=== PATIENT | female | born 1945 | race African-American/Black ===

== ENCOUNTER 2020-09-06 19:48 | Inpatient (IN) | payer OTHER ==
--- OUTSIDE RECORDS SUMMARY | 2020-09-06 19:52 | XMS REPORT | Continuity of Care Document ---
:1945 Author Organization [facility] t Address [address] [place] [address] Care Team Providers Name Role Phone ANUP JR Primary Care Physician Unavailable Ce Attending Clinician [phone] Shelby Muhammad Attending Clinician Unavailable Shelby Muhammad Attending Clinician Unavailable ELSY Attending Clinician Unavailable Tom DONALD M Attending Clinician Alvarado Carbajal MD Attending Clinician Shelby Muhammad Admitting Clinician Unavailable Payers Payer Name Policy Type Policy Number Effective Date Expiration Date S ource Problems Condition Condition Condition Status Onset Resolution Last Treating Co mments Source Name Details Category Date Date Treatment Clinician Date 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 Doing well. PCO OS - defer treatment .Rx glasses given. Posterior Posterior Disease Active Overview: [place] vitreous vitreous - Formatt[place] Met hodi detachment detachment 00:00: g of this st of both of both 00 note eyes eyes might be different from the original. No retinal tears or detachmen ts. 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 thodist Social History Social Habit Start Date Stop Date Quantity Comments Source Tobacco use and 2019-08-25 2019-08-25 Never used Keyshawn ethodist exposure 00:00:00 00:00:00 Alcohol intake 2019-08-25 2019-08-[address] [facility] thodist 00:00:00 00:00:00 non-drinker of alcohol (finding) Sex Ass[birth year] Keyshawn Childers ethodist 00:00:00 00:00:00 Smoking Status Start Date Stop Date Source [facility] Medications Ordered Filled Start Stop Current Ordering Indication Dosage Frequency Signature Comments Components Source Medication Medication Date Date Medication? Clinician (SIG) Name Name aspirin 2019-0 Yes Take 1 Mahajan (ECOTRIN 08-24 tablet(s) Method i LOW 09:28: every day st STRENGTH) 24 by oral 81 MG route. enteric coated tablet esomeprazol 2020-0 Yes TK 1 C PO [place] e (NexIUM) 7-08 QD Methodi 40 MG 09:28: st capsule 24 benazepril 2020-0 Yes 40mg Q.5D Take 40 mg [place] (LOTENSIN) 7-08 by mouth 2 Met hodi 20 MG 09:28: (two) st tablet 24 times a day. NIFEdipine 2020-0 Yes 60mg Q.5D Take 60 mg [place] XL -08 by mouth 2 Methodi (PROCARDIA 09:28: (two) st XL) 60 MG 24 times a 24 hr day. tablet nebivolol 2020-0 Yes 10mg QD Take 10 mg Ho d[place] (BYSTOLIC) 7-08 by mouth Metho di 10 MG 09:28: daily. st tablet 24 clonIDINE 2020-0 Yes 1{patch Q7D Place 1 Ho [place] (CATAPRES-T 7-08 } patch on Meth jaqueline TS-3) 0.3 09:28: the skin st mg/24 hr 24 once a week. hydrALAZINE 2020-0 Yes 50mg Q.5D Take 50 mg Mahajan (APRESOLINE 7-08 by mouth 2 Me thodi ) 100 MG 09:28: (two) st tablet 24 times a day. ferrous 2020-0 Yes 325mg QD Take 325 [place] on sulfate 325 7-08 mg by Methodi (65 FE) MG 09:28: mouth st tablet 24 daily with breakfast. gabapentin 2020-0 Yes 100mg QD Take 100 [place] (NEURONTIN) 7-08 mg by Methodi 100 mg 09:28: mouth st capsule 24 nightly. meloxicam 2020-0 Yes TAKE 1 [place] (MOBIC) 15 2-25 TABLET BY Meth jaqueline mg tablet 00:00: MOUTH st 00 EVERY DAY Procedures This patient has no known procedures. Plan of Care Planned Activity Planned Date Details Comments Source Future Scheduled 2020-09-17 INFLUENZA VACCINE [place] [facility] Test 00:00:00 [code = INFLUENZA VACCINE] Future Scheduled 1996 BREAST CANCER [place] Me thodist Test 00:00:00 SCREENING [code = BREAST CANCER SCREENING] Future Scheduled 1996 COLONOSCOPY SCREENING Tera bustamante Sabianist Test 00:00:00 [code = COLONOSCOPY SCREENING] Future Scheduled 1996 SHINGLES VACCINES [place] [facility] Test 00:00:00 (#1) [code = SHINGLES VACCINES (#1)] Future Scheduled 1964 Hepatitis C screening Tera bustamante Sabianist Test 00:00:00 (procedure) [code = 437861437] Future Scheduled 1958 COVID-19 VACCINE (1) Zehrawalt aiken Sabianist Test 00:00:00 [code = COVID-19 VACCINE (1)] Encounters Start End Encounter Admission Attending Care Care Encounter Source Date/Time Date/Time Type Type Clinicians Facility Department ID 2020-06-12 2020-06-12 Outpatient Ce [facility] [id number] 00:00:00 00:00:00 Estuardo [id number] 2019-12-06 2019-12-06 Outpatient 3 Tre Muhammad [facility] ENDO [id number] St. 06:17:00 23:59:00 Tre Muhammad [facility] 2019-12-06 2019-12-06 Outpatient 3 Tre Muhammad [facility] ENDO [id number] St. 06:17:00 06:17:00 rTe Muhammad -2019 1019 [facility] 2019-08-25 2019-08-25 Outpatient [facility] [id number] [place] 00:00:00 00:00:[address] 2019-04-13 2019-04-13 Office NEDA Santos [id number] 09:28:33 16:05:21 Visit Tiffanie Childers AMBULATOR 350.1.13.21 Y [id number] [id number] 2018-10-09 2018-10-09 Office NEDA Santos [id number] 12:42:28 13:36:42 Visit Tiffanie Childers AMBULATOR 350.1.13.21 Y [id number] [id number] 2018-09-29 2018-09-29 Office NEDA Carbajal [id number] 08:10:08 08:20:08 Visit Sonido Childers AMBULATOR 350.1.13.21 Y 0.2.7.2.686 [id number] 2017-02-04 2017-02-04 Outpatient [facility] [id number] 10:37:00 10:37:00 [facility] 2016-09-25 2016-09-25 Outpatient C [facility] MED [id number] 11:21:00 11:21:00 [facility] 2016-09-17 2016-09-17 Outpatient [facility] [id number] 14:58:00 14:58:00 [facility] 2016-08-05 2016-08-05 Outpatient [facility] [id number] 08:37:00 08:37:00 [facility] Results Test Description Test Time Test Comments Results Result Comments Source Urease H pylori 2019-12-06 13:47:04 Test Item Value Reference Range Interpretation Comme nts H. pylori (1 Hour) (test code = H. pylori (1 Hour)) Negative Urease H [id number] 13:47:04 Test Item Value Reference Range Interpretation Comments H. pylori (1 Hour) (test code = H. Negative pylori (1 Hour)) H. pylori (4 Hours) (test code = Negative H. pylori (4 Hours)) Vial Lot # (test code = Vial Lot [id number] N #) Vial Exp. Date (test code = Vial 05/11/2020 N Exp. Date) US Abdomen [id number] 10:48:48Patient: RAMONA CERVANTES Date/Time07/27/201908:35 CDTReason for ExamR10.12 R10.11ReportEXAM: Ultrasound abdomenLOCATION: D09KKYFINZ: R10.12 R10.11COMPARISON: None availableTECHNIQUE: Grayscale B-mode, Spectral Doppler analysis, and color Doppler sonographic images of the abdomen were obtained.FINDINGS:The gallbladder is normal in appearance with no cholelithiasis. No gallbladder wall thickening or pericholecystic fluid.The common bile duct is within normal limits measuring 5 mm.Liver demonstrates diffuse increase in echogenicity without focal lesion.The kidneys are symmetric in size and appearance bilaterally. No hydronephrosis.The aorta,intrahepatic IVC, and pancreas are not visualized.The spleen is unremarkable.IMPRESSION:Hepatic steatosis. Final Dictated by: MD Morrison Haider ADictated DT/TM: 07/27/2019 10:45 amSigned by: MD Morrison Haider ASigned (Electronic Signature): 07/27/2019 10:48 am- CT LOWER EXTRM W/O C [id number] 11:56:00 Patient Name: RAMONA CERVANTES Unit No: [id number] EXAMS: CPT CODE: [id number] [place] LOWER EXTRM W/[place] [address] CT OF THE LEFT ANKLE WITH SAGITTAL AND CORONAL RECONSTRUCTIONS DIAGNOSIS: There is solid fusion of the tibiotalar and talonavicular and calcaneocuboid joints with advanced degenerative change and naviculocuneiform and tarsometatarsal joints. COMMENT: COMPARISON: April 05, 2011 Scans were performed with thin sections and reconstructions were obtained. CT radiation dose optimization is achieved for this examination by the use of a CT protocol in accordance with ACR practice standards and adherence to soda dry house operator's recommendations. Postsurgical changes are as noted. No fractures are seen. at 1156 Reported and signed by: Jairo Bowen MD CC: Technologist: Mor Valadez,RT(R) CTDI: DLP: Trnscrpt: 11/18/2018 (8786) tLJJCL [facility] NAME: RAMONA CERVANTES [address] [facility] [address] PHYS: Antonino Torrez MD : 1945 AGE: 73 SEX: F [place] [address] LOC: Y.RAD PHONE #: [phone] EXAM DATE: 11/18/2018 STATUS: REG CLI FAX #: [phone] RAD #: [id number] D/C DT PAGE 1 Signed Report Patient Name: RAMONA CERVANTES Unit No: [id number] EXAMS: CPT CODE: [id number] CT LOWER EXTRM W/[place] [address] <Continued> Orig Print D/T: S: 11/18/2018 (1200) [facility] NAME: RAMONA CERVANTES [address] [facility] [address] PHYS: Antonino Torrez MD : 1945 AGE: 73 SEX: F [place] [address] LOC: Y.RAD PHONE #: [phone] EXAM DATE: 11/18/2018 STATUS: REG CLI FAX #: [phone] RAD #: [id number] D/C DT PAGE 2 Signed Report- CT LOWER EXTRM W/O C [id number] 15:22:00 Patient Name: RAMONA CERVANTES Unit No: [id number] EXAMS: CPT CODE: [id number] [place] LOWER EXTRM W/[place] [address] [place] SCAN LEFT ANKLE WITH RECONSTRUCTION DIAGNOSIS: 1.There is internal fixation of the ankle joint with a lateral plate and fixator screws. There is no CT evidence of bridging callus or healing of the ankle joint. 2. Solid fusion of the subtalar joint, talonavicular and calcaneocuboid joints. Moderate degeneration of the tarsometatarsal joints and navicular cuneiform joints. COMMENT: 0.63 mm axial slices obtained of the left ankle with reconstruction. Findings are as described above at 1522 Reported and signed by: Roe Santos MD CC: Antonino Thrasher MD Technologist: Ajit Villalpando(R) CTDI: DLP: Trnscrpt: 03/25/2018 (1522) [email or web address] [facility] NAME: RAMONA CERVANTES [address] [facility] [address] PHYS: Antonino Torrez MD : 1945 AGE: 72 SEX: F [place] [address] LOC: Y.RAD PHONE #: [phone] EXAMDATE: 03/25/2018 STATUS: REG CLI FAX #: [phone] RAD #: D/C DT PAGE 1 Signed Report Patient Name:RAMONA CERVANTES Unit No: [id number] EXAMS: CPT CODE: [id number] CT LOWER EXTRM W/[place] [address]<Continued> Orig Print D/T: S: 03/25/2018 (1525) [facility] NAME: RAMONA CERVANTES[address] [facility] PHYS: Antonino Torrez MD : 1945 AGE: 72 SEX: F [place] [address] LOC: Y.RAD PHONE #: [phone] EXAM DATE: 03/25/2018 STATUS: REG [place] #: [phone] RAD #: D/C DT PAGE 2 Signed ReportUS DUPLX LWR EXT ART/BPG, [id number] 13:16:10EXAM: US BILATERAL LOWER EXTREMITY ARTERIAL DOPPLERDATE: 09/25/2016 12:42 PM INDICATION: Bilateral lower extremity pain and swelling ADDITIONAL INFORMATION: None.COMPARISON: None. TECHNIQUE: Multiplanar grayscale, color Doppler and spectral Dopplerultrasound images of the bilateral lower extremity arteries. LOCATION: [id number]:The visualized arteries of the bilateral lower extremities are patent,without significant atherosclerotic plaque.Right Extremity Waveforms:Common Femoral Artery: 155 Triphasic.Superficial Femoral Artery: 150 Triphasic.Popliteal Artery: 91 Triphasic.Posterior Tibialis Artery: 109 Triphasic.Dorsalis Pedis Artery: 72 Triphasic.Left Extremity Waveforms:Common Femoral Artery:116 Triphasic.Superficial Femoral Artery: 119 Triphasic.Popliteal Artery: 90 Triphasic.Posterior Tibialis Artery: 83 Triphasic.Dorsalis Pedis Artery: 94 Triphasic. IMPRESSION:Normal arterial Doppler examination of the bilateral lower extremities.
--- NOTE | 2020-09-06 20:28 | RAD REPORT ---
EXAM DESCRIPTION: RAD - Chest Single View - 09/06/2020 8:15 pm CLINICAL HISTORY: Cough;Dyspnea COMPARISON: <Comparisons> FINDINGS: There are some ill-defined airspace opacities in the at since left mid lung and lung base. Cardiomegaly.No acute osseous abnormality. No significant pleural effusions or pneumothorax. IMPRESSION: Airspace disease in the left lung could represent pneumonia.
[2020-09-06 20:37] LABS: Absolute Lymphocytes (CBC) 1.5 K/uL (0.7-4.9); Basophils % 0.6 % (0-1.3); Hematocrit 34.8 % (36.0-45.0); Lymphocytes % 14.9 % (15.3-44.8); MPV 8.3 fL (7.6-11.3); RBC Red Blood Cell Count 4.01 M/uL (3.86-4.86)
[2020-09-06 20:46] LABS: Protime INR 1.28
[2020-09-06] MEDS ORDERED: NA CHLORIDE 0.9% 250 ML ONE (21:03)
[2020-09-06] MEDS ORDERED: CEFTRIAXONE/SWI 1gm 1 GM/10 ML SYR ONE (21:03)
[2020-09-06] MEDS ORDERED: AZITHROMYCIN 500 MG INJ IVPB ONE (21:03)
--- NOTE | 2020-09-06 21:31 | EDPHYS ---
Physician Documentation [facility] Name: Kristofer Upton Age: 74 yrs Sex: Female : 1945 Arrival Date: 09/06/2020 Time: 20:00 Bed 4 Private MD: ED Physician Abdias Burnett HPI: 09/06 20:08 This 74 yrs old Black Female presents to ER via Unassigned with complaints of Shortness rn Of Breath. 20:08 The patient has shortness of breath at rest, with light activity. Onset: The rn symptoms/episode began/occurred this morning. Duration: The symptoms are continuous. The patient's shortness of breath is aggravated by exertion, light activity, talking, is alleviated by application of supplemental oxygen. Associated signs and symptoms: Pertinent positives: non-productive cough, Pertinent negatives: fever, hemoptysis, loss of consciousness, vomiting. Severity of symptoms: At their worst the symptoms were moderate in the emergency department the symptoms are unchanged. The patient has not experienced similar symptoms in the past. The patient has not recently seen a physician. Patient reports shortness of breath that began earlier today. Reports dry cough. Worse with exertion and talking. Improves with supplemental oxygen. Denies abdominal pain. Does report last week had black stool, evaluated by GI doctor in [place] without focus of bleeding. Takes daily aspirin.. Historical: - Allergies: 20:09 No Known Allergies; ca1 - Home Meds: 20:13 aspirin 81 mg Oral TbEC 1 tab once daily [Active]; ca1 - PMHx: 20:13 Hypertensive disorder; ca1 - Immunization history:: Adult Immunizations up to date. - Social history:: Smoking status: Patient denies any tobacco usage or history of. - Family history:: not pertinent. - Hospitalizations: : No recent hospitalization is reported. ROS: 20:08 Constitutional: Negative for fever, chills, and weight loss, Eyes: Negative for injury, rn pain, redness, and discharge, ENT: Negative for injury, pain, and discharge, Neck: Negative for injury, pain, and swelling, Cardiovascular: Negative for chest pain, palpitations, and edema, Respiratory: Positive for shortness of breath, and nonproductive cough Abdomen/GI: Negative for abdominal pain, nausea, vomiting, diarrhea, and constipation, Back: Negative for injury and pain, : Negative for injury, bleeding, discharge, and swelling, MS/Extremity: Negative for injury and deformity, Skin: Negative for injury, rash, and discoloration, Neuro: Positive for generalized weakness 20:12 All other systems are negative. rn Exam: 20:08 Constitutional: This is a well developed, well nourished patient who is awake, alert, rn positive moderate tachypnea Head/Face: Normocephalic, atraumatic. Eyes: Pupils equal round and reactive to light, extra-ocular motions intact. Cardiovascular: Tachycardic, regular rhythm. No pulse deficits. Respiratory: Moderate tachypnea, diminished breath sounds at bases. Abdomen/GI: Soft nontender, no masses, nondistended Skin: Warm, dry MS/ Extremity: Pulses equal, no cyanosis. Neurovascular intact. Full, normal range of motion. Equal circumference. Neuro: Awake and alert, GCS 15, oriented to person, place, time, and situation. Cranial nerves II-XII grossly intact. Motor strength 4/5 in all extremities. Sensory grossly intact. Cerebellar exam normal. Vital Signs: 20:07 BP 125 / 77; Pulse 112; Resp 24; Temp 97.7(O); Pulse Ox 86% on R/A; Weight 95.71 kg; ca1 Height 5 ft. 6 in. (167.64 cm); Pain 0/10; 20:53 BP 122 / 89; Pulse 110; Resp 25 S; Pulse Ox 95% on 6 lpm NC; ad5 20:07 Body Mass Index 34.06 (95.71 kg, 167.64 cm) ca1 Procedures: 09/07 07:23 Intubation: Ventilated with 100% NRB prior to procedure. Intubated orally using # 4 rn Mohan blade with 7.5 mm ETT. was successful on first attempt. Cricoid pressure applied during procedure. Tube secured with ETT villanueva at right side of mouth measured 23 cm at gum. Placement verified by auscultating bilateral breath sounds, Patient tolerated well. 08:37 Central Line: the site was prepped with Betadine, in sterile fashion, a triple lumen hayde catheter was inserted, in the right femoral vein, in 1 attempts. placement was verified, by blood return, the site was dressed with 4X4s, using sterile technique, the patient tolerated the procedure, well. MDM: 09/06 20:05 Patient medically screened. rn 20:19 ED course: Occult negative stool normal. rn 21:30 Differential diagnosis: Anemia pneumonia, Pneumothorax pulmonary edema, Sepsis. Data rn reviewed: vital signs, nurses notes, lab test result(s), EKG, radiologic studies, plain films, and as a result, I will admit patient. Counseling: I had a detailed discussion with the patient and/or guardian regarding: the historical points, exam findings, and any diagnostic results supporting the discharge/admit diagnosis, lab results, radiology results, the need for further work-up and treatment in the hospital. Response to treatment: the patient's symptoms have mildly improved after treatment, and as a result, I will admit patient. Admission orders: after a detailed discussion of the patient's condition and case, the admit orders are written by me. 09/07 07:23 ED course: Pt admitted, was using bedside commode with nurse in room, became very rn bradycardic on monitor and had syncopal episode. Briefly woke up and was speaking incomprehensible speech. Persistent HR in 40s and appears junctional. Intubated for airway protection. . 09/06 20:06 Order name: BMP rn 09/06 20:06 Order name: Blood Culture Adult (2) rn 09/06 20:06 Order name: CBC with Diff rn 09/06 20:06 Order name: Hepatic Function rn 09/06 20:06 Order name: Magnesium rn 09/06 20:06 Order name: NT PRO-BNP rn 09/06 20:06 Order name: PT-INR; Complete Time: 21:21 09/06 20:06 Order name: Ptt, Activated; Complete Time: 21: 09/06 20:06 Order name: Troponin (emerg Dept Use Only); Complete Time: 08:33 rn 09/06 20:06 Order name: Procalcitonin; Complete Time: 21:21 rn 09/06 20:06 Order name: Flu; Complete Time: 21:21 rn 09/06 20:06 Order name: Type And Screen; Complete Time: 21:21 rn 09/06 20:07 Order name: Basic Metabolic Panel; Complete Time: 08:33 EDMS 09/06 20:07 Order name: Blood Culture EDUT 09/06 20:07 Order name: CBC with Automated Diff; Complete Time: 20:48 EDMS 09/06 20:07 Order name: Liver (Hepatic) Function; Complete Time: 08:33 EDMS 09/06 20:07 Order name: Magnesium; Complete Time: 08:33 EDMS 09/06 20:07 Order name: NT PRO-BNP; Complete Time: 08:33 EDMS 09/06 21:37 Order name: SARS-COV-2 RT PCR; Complete Time: 21:37 EDMS 09/06 21:41 Order name: C-Reactive Protein; Complete Time: 08:33 EDMS 09/07 02:12 Order name: Troponin I; Complete Time: 08:33 EDMS 09/07 05:50 Order name: CBC with Automated Diff; Complete Time: 08:33 EDMS 09/07 05:54 Order name: Comprehensive Metabolic Panel; Complete Time: 08:33 EDMS 09/07 05:54 Order name: Troponin I; Complete Time: 08:33 EDMS 09/07 05:54 Order name: Lipid Profile; Complete Time: 08:33 EDMS 09/07 05:54 Order name: C-Reactive Protein; Complete Time: 08:33 EDMS 09/07 05:54 Order name: T4 Free; Complete Time: 08:33 EDMS 09/07 05:54 Order name: Magnesium; Complete Time: 08:33 EDMS 09/06 20:06 Order name: XRAY CXR (1 view); Complete Time: 20:34 rn 09/06 20:06 Order name: EKG; Complete Time: 20:07 rn 09/06 20:06 Order name: Cardiac monitoring; Complete Time: 20:32 rn 09/06 20:06 Order name: EKG - Nurse/Tech; Complete Time: 20:32 rn 09/06 20:06 Order name: IV Saline Lock; Complete Time: 20:32 rn 09/06 20:06 Order name: Labs collected and sent; Complete Time: 20:32 rn 09/06 20:06 Order name: O2 Per Protocol; Complete Time: 20:32 rn 09/06 20:06 Order name: O2 Sat Monitoring; Complete Time: 20:33 rn 09/07 05:54 Order name: Thyroid Stimulating Hormone; Complete Time: 08:33 EDMS 09/07 05:54 Order name: Ferritin; Complete Time: 08:33 EDMS 09/07 06:37 Order name: Procalcitonin; Complete Time: 08:33 EDMS 09/07 06:39 Order name: ABO/RH no charge; Complete Time: 08:33 EDUT 09/07 07:29 Order name: Glucose, Ancillary Testing; Complete Time: 08:33 EDUT 09/07 08:58 Order name: Echo w/ Doppler hayde 09/07 09:35 Order name: RAD EDUT 09/07 10:39 Order name: ABG em1 09/07 10:59 Order name: ABG Arterial Blood Gas EDUT 09/07 12:02 Order name: Glucose, Ancillary Testing EDUT 09/07 13:07 Order name: Gram Stain--Aerobic Bottle EDUT 09/07 13:42 Order name: Gram Stain--Aerobic Bottle EDUT Administered Medications: 09/06 20:40 Drug: Rocephin (cefTRIAXone) 1 grams Route: IV; Rate: calculated rate; Site: right ad5 antecubital; 09/07 02:15 Follow up: IV Status: Completed infusion ea 09/06 20:45 Drug: Zithromax (azithromycin) 500 mg Route: IVPB; Infused Over: 1 hrs; Site: right ad5 antecubital; 21:56 Follow up: Response: No adverse reaction; IV Status: Completed infusion; IV Intake: ad5 250ml 21:38 Drug: fentaNYL (PF) 25 mcg Route: IVP; Site: right antecubital; ea 22:50 Follow up: Response: No adverse reaction; Pain is decreased; RASS: Alert and Calm (0) ad5 22:20 Drug: SOLU-Medrol (methylPrednisoLONE) 125 mg Route: IVP; Site: right antecubital; ea 09/07 02:15 Follow up: Response: No adverse reaction ea 09/06 22:20 Drug: Lovenox (enoxaparin) 1 mg/kg Route: Sub-Q; Site: right lower abdomen; ea 09/07 02:15 Follow up: Response: No adverse reaction ea 10:18 Not Given (Physician Discretion): morphine 2 mg IVP once; RASS on ADMIN: Combtv4, Very sv Agttd3, Agttd2, Rstlss1, AlertClm0, Drwsy-1, Lt Sdtn-2, Mod Sdtn-3, Dp Sdtn-4, UnArsble-5 10:18 Not Given (Physician Discretion): Zofran (Ondansetron) 4 mg IVP once; over 2 minutes sv Point of Care Testing: Guaiac: 09/06 20:19 Stool Guaiac: Negative; Stool Hemoccult Control: Pass; rn Disposition Summary: 09/06/20 21:30 Hospitalization Ordered Hospitalization Status: Inpatient Admission rn Provider: Truman Burnett rn Condition: Stable rn Problem: new rn Symptoms: have improved rn Bed/Room Type: Standard rn Location: [facility] ER HOLD(09/06/20 22:01) tl1 Room Assignment: ERHOLD-(09/06/20 22:01) tl1 Diagnosis - Pneumonia due to SARS-associated coronavirus rn - Hypoxemia rn Forms: - Medication Reconciliation Form rn - SBAR form rn Signatures: Dispatcher [employer] EDMS Yoseph Huerta MD MD cha Nieto, Roman, MD MD rn Preet Mcintyre, SECURITIES COMPLIANCE EXAMINER-C SECURITIES COMPLIANCE EXAMINER-Cla1 Jany Raymond RN RN tl1 Steffi Gonzales RN RN ea Acob, Cheryl RN RN Kin Perkins Stephanie RN sv Corrections: (The following items were deleted from the chart) 20:36 20:07 CORONAVIRUS+MR.LAB.BRZ ordered. EDMS EDMS 21:38 21:30 Pneumonia, unspecified organism rn rn 21:42 21:38 C-REACTIVE PROTEIN+C.LAB.BRZ ordered. EDUT EDMS 22:01 21:30 Telemetry/MedSurg (Inpatient) rn tl1 22:01 21:30 rn tl1
--- NOTE | 2020-09-06 21:31 | ER ---
Nurse's Notes [facility] Name: Kristofer Upton Age: 74 yrs Sex: Female : 1945 Arrival Date: 09/06/2020 Time: 20:00 Bed 4 Private MD: Diagnosis: Pneumonia due to SARS-associated coronavirus;Hypoxemia Presentation: 09/06 20:07 Chief complaint: EMS states: called out for shortness of breath for 1 one hour, also ca1 reports hx of GI bleed, reports dark tarry stool, SPO2 low 80s at home, placed on 5 LPM via NC. Coronavirus screen: Client denies travel out of the [place] in the last 14 days. Ebola Screen: Patient negative for fever greater than or equal to 101.5 degrees Fahrenheit, and additional compatible Ebola Virus Disease symptoms Patient denies exposure to infectious person. Patient denies travel to an Ebola-affected area in the 21 days before illness onset. No symptoms or risks identified at this time. Initial Sepsis Screen: Does the patient meet any 2 criteria? HR > 90 bpm. No. Patient's initial sepsis screen is negative. Does the patient have a suspected source of infection? No. Patient's initial sepsis screen is negative. Risk Assessment: Do you want to hurt yourself or someone else? Patient reports no desire to harm self or others. Onset of symptoms was September 06, 2020. 20:07 Method Of Arrival: EMS: [facility] 20:07 Acuity: KENYETTA 2 ca1 Historical: - Allergies: 20:09 No Known Allergies; ca1 - Home Meds: 20:13 aspirin 81 mg Oral TbEC 1 tab once daily [Active]; ca1 - PMHx: 20:13 Hypertensive disorder; ca1 - Immunization history:: Adult Immunizations up to date. - Social history:: Smoking status: Patient denies any tobacco usage or history of. - Family history:: not pertinent. - Hospitalizations: : No recent hospitalization is reported. Screenin:35 Abuse screen: Denies threats or abuse. Denies injuries from another. Nutritional ad5 screening: No deficits noted. Tuberculosis screening: No symptoms or risk factors identified. Fall Risk No fall in past 12 months (0 pts). Secondary diagnosis (15 points) IV access (20 points). Ambulatory Aid- None/Bed Rest/Nurse Assist (0 pts). Gait- Weak (10 pts.). Mental Status- Oriented to own ability (0 pts). Total Torres Fall Scale indicates High Risk Score (45 or more points). Fall prevention measures have been instituted. Side Rails Up X 2 Placed Close to Nursing Station Frequent Obs/Assessments Occuring Family Present and informed to notify staff if the need to leave the bedside As available patient and family educated on Fall Prevention Program and Strategies. Assessment: 20:33 General: Appears distressed, Behavior is calm, cooperative, appropriate for age. Pain: ad5 Denies pain. Neuro: No deficits noted. Level of Consciousness is awake, alert, obeys commands, Oriented to person, place, time, situation, Appropriate for age Weakness. Cardiovascular: Heart tones present Capillary refill < 3 seconds Patient's skin is warm and dry. Pulses are all present. Edema is absent. Rhythm is regular. Respiratory: Airway is patent Respiratory effort is even, labored, Respiratory pattern is symmetrical, tachypnea Breath sounds are diminished bilaterally. Onset: The symptoms/episode began/occurred today. GI: Abdomen is round Bowel sounds present X 4 quads. Abd is soft and non tender X 4 quads. Reports rectal bleeding, intermittent over past month. : No deficits noted. No signs and/or symptoms were reported regarding the genitourinary system. Derm: Skin is dry, Skin is normal, Skin temperature is warm. Musculoskeletal: Reports weakness in generalized. 20:52 Reassessment: Patient appears in no apparent distress at this time. Patient and/or ad5 family updated on plan of care and expected duration. Pain level reassessed. Pt with improved resp effort noted at this time, remains on 6L O2 via NC with O2 sat mid 90s. Pt family at bedside. Pt provided warm blanket per request. Will continue to monitor. Patient states symptoms have improved. Vital Signs: 20:07 BP 125 / 77; Pulse 112; Resp 24; Temp 97.7(O); Pulse Ox 86% on R/A; Weight 95.71 kg; ca1 Height 5 ft. 6 in. (167.64 cm); Pain 0/10; 20:53 BP 122 / 89; Pulse 110; Resp 25 S; Pulse Ox 95% on 6 lpm NC; ad5 20:07 Body Mass Index 34.06 (95.71 kg, 167.64 cm) ca1 ED Course: 20:00 Patient arrived in ED. mw2 20:05 Abdias Burnett MD is Attending Physician. rn 20:09 Triage completed. ca1 20:09 Arm band placed on. ca1 20:12 Kin Bains is Primary Nurse. ad5 20:16 XRAY CXR (1 view) In Process Unspecified. EDMS 20:35 Patient has correct armband on for positive identification. Bed in low position. Call ad5 light in reach. Side rails up X2. Adult w/ patient. air sampling and monitoring on. Pulse ox on. NIBP on. Door closed. Noise minimized. Warm blanket given. Head of bed elevated. 20:36 Initial lab(s) drawn, by me, sent to lab. EKG done, by ED staff, reviewed by Abdias Burnett MD COVID swab sent to lab. Flu and/or RSV swab sent to lab. Inserted saline lock: 20 gauge in right antecubital area, using aseptic technique. Blood collected. 21:30 Truman Burnett MD is Hospitalizing Provider. rn 21:42 Notified ED physician of a critical lab result(s). trop. 0.78. em 23:30 No provider procedures requiring assistance completed. Patient admitted, IV remains in ad5 place. 09/07 06:19 Primary Nurse role handed off by Kin Bains mw2 10:18 Shonna Narayanan, RN is Primary Nurse. sv 10:18 Echo w/ Doppler Sent. sv 10:19 NT PRO-BNP Sent. sv 10:19 Magnesium Sent. sv 10:19 Hepatic Function Sent. sv 10:19 CBC with Diff Sent. sv 10:19 Blood Culture Adult (2) Sent. sv 10:19 BMP Sent. sv 14:12 Gonzalez cath balloon deflated. ll1 Administered Medications: 09/06 20:40 Drug: Rocephin (cefTRIAXone) 1 grams Route: IV; Rate: calculated rate; Site: right ad5 antecubital; 09/07 02:15 Follow up: IV Status: Completed infusion ea 09/06 20:45 Drug: Zithromax (azithromycin) 500 mg Route: IVPB; Infused Over: 1 hrs; Site: right ad5 antecubital; 21:56 Follow up: Response: No adverse reaction; IV Status: Completed infusion; IV Intake: ad5 250ml 21:38 Drug: fentaNYL (PF) 25 mcg Route: IVP; Site: right antecubital; ea 22:50 Follow up: Response: No adverse reaction; Pain is decreased; RASS: Alert and Calm (0) ad5 22:20 Drug: SOLU-Medrol (methylPrednisoLONE) 125 mg Route: IVP; Site: right antecubital; ea 09/07 02:15 Follow up: Response: No adverse reaction ea 09/06 22:20 Drug: Lovenox (enoxaparin) 1 mg/kg Route: Sub-Q; Site: right lower abdomen; ea 09/07 02:15 Follow up: Response: No adverse reaction ea 10:18 Not Given (Physician Discretion): morphine 2 mg IVP once; RASS on ADMIN: Combtv4, Very sv Agttd3, Agttd2, Rstlss1, AlertClm0, Drwsy-1, Lt Sdtn-2, Mod Sdtn-3, Dp Sdtn-4, UnArsble-5 10:18 Not Given (Physician Discretion): Zofran (Ondansetron) 4 mg IVP once; over 2 minutes sv Point of Care Testing: Guaiac: 09/06 20:19 Stool Guaiac: Negative; Stool Hemoccult Control: Pass; pattern checker: 21:56 IV: 250ml; Total: 250ml. ad5 Output: 09/07 14:12 Urine: 500ml (Gonzalez); Total: 500ml. ll1 Outcome: 09/06 21:30 Decision to Hospitalize by Provider. rn 23:30 Admitted to ER Hold. Please see [facility] for further documentation. ad5 23:30 Condition: stable 23:30 Instructed on the need for admit, Demonstrated understanding of instructions. 09/07 14:12 Patient left the ED. ll1 Signatures: Dispatcher [employer] Shonna De La Garza RN Ye Henley RN Abdias Curry MD MD rn Antunez, Elena, RN RN ea Westbrook, MyKena 2 Deisy Philip RN RN ca1 Lewis, Lynsay, RN RN ll1 Kin Bains ad5
[2020-09-06 21:40] LABS: Albumin 3.3 g/dL (3.4-5.0); Bilirubin Direct 0.2 mg/dL (0-0.2); Bilirubin Total 0.7 mg/dL (0.2-1.0); Magnesium 2.3 mg/dL (1.8-2.4); Potassium 3.4 mmol/L (3.5-5.1); Protein, Total 7.9 g/dL (6.4-8.2)
[2020-09-06 21:41] LABS: Troponin (Emerg Dept Use Only) 0.83 ng/mL (0.0-0.045)
[2020-09-06 21:50] LABS: C-Reactive Protein 17.6 mg/L (<3.00)
[2020-09-06] MEDS ORDERED: FENTANYL CITR 100 MCG/2 ML ONE (21:57)
[2020-09-06] MEDS ORDERED: METHYLPREDNISOLONE 125 MG INJ ONE (22:03)
[2020-09-06] MEDS ORDERED: ENOXAPARIN 100 MG/ML SYR SQ ONE (22:35)
--- NOTE | 2020-09-06 22:49 | P.HP ---
Certification for Inpatient Patient admitted to: Inpatient With expected LOS: >2 Midnights Patient will require the following post-hospital care: None Practitioner: I am a practitioner with admitting privileges, knowledge of patient current condition, hospital course, and medical plan of care. Services: Services provided to patient in accordance with Admission requirements found in Title 42 Section 412.3 of the Code of Federal Regulations Patient History Date of Service: 09/06/20 Primary Care Provider: Dr. Jimenez Reason for admission: Pneumonia, NSTEMI History of Present Illness: 74-year-old -Bulgarian female with history of hypertension, previous GI bleed presents emergency department for shortness of breath. Patient reports shortness of breath got significantly worse today. Patient 86% on nasal cannula upon arrival to the emergency department. Patient evaluated in the emergency department, labs significant for potassium 3.4 chloride 108 creatinine 1.42 GFR 44 glucose 145 troponin 0 0.83 C-reactive protein 17.6. Chest x-ray demonstrates suspected left-sided pneumonia, ED progress is to admit for COVID-19 pneumonia, NSTEMI. When I saw the patient in the ER she is awake, alert, oriented x3. Tolerating nasal cannula well at this time saturating around 92 to 93%. Patient does not appear septic at this time. BNP normal at 81 GFR 44, will need to consider CT PE protocol. - Past Medical/Surgical History -: Hypertension -: History of GI bleed -: Ankle surgery -: Spine surgery Psychosocial/ Personal History: Patient is retired, lives with her son - Family History Mother -: Heart disease, Hypertension Father -: Hypertension - Social History Smoking Status: Never smoker Alcohol use: No CD- Drugs: No Caffeine use: No Place of Residence: Home Review of Systems 10-point ROS is otherwise unremarkable General: Weakness, Malaise Respiratory: Cough, Shortness of Breath Physical Examination - Physical Exam General: Alert, In no apparent distress, Oriented x3 HEENT: Atraumatic, PERRLA, Mucous membr. moist/pink, EOMI, Sclerae nonicteric Neck: Supple, 2+ carotid pulse no bruit, No LAD, Without JVD or thyroid abnormality Respiratory: Clear to auscultation bilaterally, Diminished (Bilaterally) Cardiovascular: Regular rate/rhythm, Normal S1 S2 Gastrointestinal: Normal bowel sounds, No tenderness Musculoskeletal: No tenderness Integumentary: No rashes Neurological: Normal speech, Normal strength at 5/5 x4 extr, Normal tone, Normal affect - Studies Laboratory Data (last 24 hrs) 09/06/20 20:15: PT 14.7 H, INR 1.28, APTT 26.2 09/06/20 20:15: WBC 9.90, Hgb 11.8 L, Hct 34.8 L, Plt Count 223 09/06/20 20:15: Sodium 140, Potassium 3.4 L, BUN 24 H, Creatinine 1.42 H, Glucose 145 H, Magnesium 2.3, Total Bilirubin 0.7, AST 19, ALT 27, Alkaline Phosphatase 109 Microbiology Data (last 24 hrs): 09/06/20 20:20 Nasopharnyx Influenza Type A Antigen Screen - Final 09/06/20 20:20 Nasopharnyx Influenza Type B Antigen Screen - Final Assessment and Plan - Plan Assessment: Acute hypoxic respiratory failure secondary to COVID-19 pneumonia NSTEMI Hypertension Plan: Acute hypoxic respiratory failure secondary to COVID-19 pneumonia: Continue with IV steroids, oral supplements. Pulmonology consulted for additional assistance. Supplemental oxygen as needed. Daily room air saturations. Full dose Lovenox secondary to NSTEMI. Daily CRP, ferritin levels. We will need to consider CT PE protocol, currently GFR around 44/borderline. Will hydrate patient overnight gently, if renal function has improved we will consider ordering CT PE protocol. NSTEMI: Full dose Lovenox, cardiology consulted. Monitor on telemetry. Trend troponins, daily aspirin, statin, beta-debbie therapy. Hypertension: Obtain continue medications as appropriate. DVT PPX: Full dose Lovenox Code status: Full code Discharge Plan: Home Plan to discharge in: Greater than 2 days - Advance Directives Does patient have a Living Will: No Does patient have a Durable POA for Healthcare: No - Code Status/Comfort Care Code Status Assessed: Yes (Full code) Critical Care: No Time Spent Managing Pts Care (In Minutes): 55
[2020-09-06] MEDS ORDERED: MELATONIN 5 MG TABLET PO PRN (22:52)
[2020-09-06] MEDS ORDERED: BENZONATATE 100 MG CAP PO PRN (22:52)
[2020-09-06] MEDS: NA CHLORIDE 0.9% 1,000 ML IV SCH (22:52)
[2020-09-06] MEDS ORDERED: ONDANSETRON 4 MG/2 ML VIAL IV PRN (22:52)
[2020-09-06] MEDS ORDERED: ACETAMINOPHEN 500 MG TAB PO PRN (22:52)
[2020-09-06 22:59] VITALS: BMI 34.0
[2020-09-07] MEDS ORDERED: NA CHLORIDE 0.9% 1,000 ML ONE ×3 (00:44→10:49)
[2020-09-07] MEDS ORDERED: ATORVASTATIN 20 MG TAB ONE (00:44)
[2020-09-07] MEDS ORDERED: FENTANYL CITR 100 MCG/2 ML IV PRN (00:55)
[2020-09-07 05:27] LABS: Absolute Lymphocytes (CBC) 0.9 K/uL (0.7-4.9); Hematocrit 34.6 % (36.0-45.0); MPV 8.3 fL (7.6-11.3); RBC Red Blood Cell Count 3.96 M/uL (3.86-4.86)
[2020-09-07 05:50] LABS: Albumin 3.1 g/dL (3.4-5.0); Bilirubin Total 0.4 mg/dL (0.2-1.0); C-Reactive Protein 20.6 mg/L (<3.00); Ferritin 184.6 ng/mL (8-388); Magnesium 2.5 mg/dL (1.8-2.4); Potassium 4.3 mmol/L (3.5-5.1); Protein, Total 7.7 g/dL (6.4-8.2); Thyroid Stimulating Hormone 0.214 uIU/mL (0.360-3.740)
[2020-09-07 05:54] LABS: Troponin I 1.65 ng/mL (0.0-0.045)
[2020-09-07] MEDS ORDERED: METOPROLOL TAR 25 MG TAB PO SCH (06:00)
[2020-09-07] MEDS ORDERED: PANTOPRAZOLE 40MG TABLET PO SCH (06:30)
--- NOTE | 2020-09-07 07:00 | P.PN ---
Subjective Date of Service: 09/07/20 Primary Care Provider: Dr. Jimenez Chief Complaint: Pneumonia, NSTEMI Subjective: No new changes (feeling slightly better, requiring HFNC, feeling weak) Physical Examination - Vital Signs Temperature: 98.7 F Blood Pressure: 132/99 Pulse: 97 Respirations: 22 Pulse Ox (%): 97 - Studies Laboratory Data (last 24 hrs) 09/06/20 20:15: PT 14.7 H, INR 1.28, APTT 26.2 09/06/20 20:15: WBC 9.90, Hgb 11.8 L, Hct 34.8 L, Plt Count 223 09/06/20 20:15: Sodium 140, Potassium 3.4 L, BUN 24 H, Creatinine 1.42 H, Glucose 145 H, Magnesium 2.3, Total Bilirubin 0.7, AST 19, ALT 27, Alkaline Phosphatase 109 Microbiology Data (last 24 hrs): 09/06/20 20:20 Nasopharnyx Influenza Type A Antigen Screen - Final 09/06/20 20:20 Nasopharnyx Influenza Type B Antigen Screen - Final
[2020-09-07] MEDS ORDERED: RSI MEDICATION KIT IV ONE (07:40)
[2020-09-07] MEDS ORDERED: EPINEPHrine 1 MG/10 ML SYR ONE (08:09)
[2020-09-07] MEDS ORDERED: AMIODARONE IN DEXTROSE,ISO-OSM 360 MG/200 ML BAG IV ONE (08:22)
[2020-09-07] MEDS ORDERED: NOREPINEPHRINE 4mg/D5W 250mL 4 MG/250 ML BAG IV ONE (08:40)
[2020-09-07] MEDS ORDERED: ASPIRIN EC 81 MG TAB PO SCH (09:00)
[2020-09-07] MEDS ORDERED: ASPIRIN 81 MG CHEWABLE TABLET PO SCH (09:00)
[2020-09-07] MEDS ORDERED: VITAMIN D 1000 UNIT TAB PO SCH (09:00)
[2020-09-07] MEDS ORDERED: ENOXAPARIN 100 MG/ML SYR SQ SCH (09:00)
[2020-09-07] MEDS ORDERED: PANTOPRAZOLE 40 MG INJ IVP SCH (09:00)
[2020-09-07] MEDS ORDERED: NIFEDIPINE XL 60 MG TABLET PO SCH (09:00)
[2020-09-07] MEDS ORDERED: BENAZEPRIL 20 MG TAB PO SCH (09:00)
[2020-09-07] MEDS ORDERED: THIAMINE HCL 100 MG TABLET PO SCH (09:00)
[2020-09-07] MEDS ORDERED: ZINC SULFATE 220 MG CAP PO SCH (09:00)
[2020-09-07] MEDS ORDERED: METHYLPREDNISOLONE 40 MG INJ IV SCH (09:00)
[2020-09-07] MEDS ORDERED: CLONIDINE 0.3 MG/PATCH TD SCH (09:00)
[2020-09-07] MEDS ORDERED: ASCORBIC ACID 500 MG TABLET PO SCH (09:00)
[2020-09-07] MEDS ORDERED: NEBIVOLOL HCL 5 MG TAB PO SCH (09:00)
--- NOTE | 2020-09-07 09:35 | RAD REPORT ---
EXAM DESCRIPTION: RAD - Chest Single View - 09/07/2020 9:14 am CLINICAL HISTORY: Post intubation COMPARISON: Chest Single View dated 09/06/2020 FINDINGS: Endotracheal tube just above the delvis in satisfactory position. Cardiomegaly. Defibrilla tor pad overlies the right upper chest. Increased right upper lobe airspace disease. There is still s ome patchy ill-defined left mid lung and basilar airspace opacities. No fractures are seen. IMPRESSION: Interval placement of an endotracheal tube which is in satisfactory position above the c brendon. Increased right upper lobe and similar left lung opacities. The right upper lobe airspace dise ase could reflect atelectasis and/or aspiration. The nonspecific left lung airspace opacities could r eflect pneumonia as mentioned on the prior port.
[2020-09-07] MEDS ORDERED: NOREPINEPHRINE 4 MG in D5W 250 ML IV PRN (10:22)
[2020-09-07] MEDS ORDERED: ZINC SULFATE 220 MG CAP ONE (10:48)
[2020-09-07] MEDS ORDERED: VITAMIN D 1000 UNIT TAB ONE (10:48)
[2020-09-07] MEDS ORDERED: METHYLPREDNISOLONE 40 MG INJ ONE ×2 (10:49→11:33)
[2020-09-07] MEDS ORDERED: ASCORBIC ACID 500 MG TABLET ONE ×2 (10:49→11:04)
[2020-09-07] MEDS ORDERED: ENOXAPARIN 100 MG/ML SYR SQ ONE (10:49)
[2020-09-07] MEDS ORDERED: ASPIRIN 81 MG CHEWABLE TABLET ONE (10:56)
[2020-09-07] MEDS ORDERED: PANTOPRAZOLE 40 MG INJ ONE (10:56)
[2020-09-07 10:57] LABS: Blood O2 Saturation 70.9 % (92-98.5)
--- NOTE | 2020-09-07 11:00 | EKG ---
Test Date: 2020-09-06 Test Time: 20:22:00 Fire Sprinkler Designer: NISHA MEASUREMENT RESULTS: Intervals: Rate: 111 IA: 180 QRSD: 92 QT: 344 QTc: 467 [place]: P: 53 IA: 180 QRS: 10 T: 23 INTERPRETIVE STATEMENTS: Sinus tachycardia with premature atrial complexes Possible Left atrial enlargement Possible Inferior infarct, age undetermined Abnormal ECG No previous ECG available for comparison Electronically Signed On 09-07-20 10:58:34 CDT by Fernando Lees
[2020-09-07] MEDS ORDERED: SODIUM CHLORIDE 0.9% 10ML INJ IV PRN (11:02)
[2020-09-07] MEDS: NA CHLORIDE 0.9% 1,000 ML IV SCH (11:06)
[2020-09-07 11:13] VITALS: O2SAT 73
--- NOTE | 2020-09-07 11:46 | ECHO ---
HEIGHT: 5 ft 6 in WEIGHT: 211 lb 0.071 oz DATE OF STUDY: 09/07/[address]: Preet Mcintyre NP 2-DIMENSIONAL: YES M.MODE: YES DOPPLER: YES COLOR FLOW: YES TDS: NO PORTABLE: NO DEFINITY: NO BUBBLE STUDY: NO DIAGNOSIS: CPR CODE CARDIAC HISTORY: CATHERIZATION: SURGERY: PROSTHETIC VALVE: PACEMAKER: MEASUREMENTS (cm) DIASTOLIC (NORMALS) SYSTOLIC (NORMALS) IVSd 1.5 (0.6-1.2) LA Diam 4.1 (1.9-4.0) LVEF 44% LVIDd 3.6 (3.5-5.7) LVIDs 2.8 (2.0-3.5) %FS 21% LVPWd 1.1 (0.6-1.2) Ao Diam 2.9 (2.0-3.7) 2 DIMENSIONAL ASSESSMENT: RIGHT ATRIUM: NORMAL LEFT ATRIUM: DILATED RIGHT VENTRICLE: NORMAL LEFT VENTRICLE: LEFT VENTRICULAR HYPERTROPHY TRICUSPID VALVE: NORMAL MITRAL VALVE: NORMAL PULMONIC VALVE: NORMAL AORTIC VALVE: NORMAL PERICARDIAL EFFUSION: NONE AORTIC ROOT: NORMAL LEFT VENTRICULAR WALL MOTION: MILD GLOBAL HYPOKINESIS. DOPPLER/COLOR FLOW: MILD TRICUSPID REGURGITATION. COMMENTS: LEFT VENTRICULAR HYPERTROPHY. LEFT VENTRICULAR EJECTION FRACTION 44%. MILD GLOBAL HYPOKINESIS. MILD TRICUSPID REGURGITATION. RIGHT VENTRICULAR SYSTOLIC PRESSURE 42 mmHg. TECHNOLOGIST: Dennis SALAZAR
[2020-09-07 12:04] VITALS: BP 88/57; TEMP 96.2
[2020-09-07] MEDS ORDERED: NOREPINEPHRINE 8 MG in Dextrose 5%-Water 500 ML IV PRN (13:00)
[2020-09-07] MEDS ORDERED: EPINEPHrine 1 MG/10 ML SYR IV ONE ×2 (13:27→14:38)
[2020-09-07] MEDS ORDERED: LIDOCAINE 100 MG/5 ML SYRINGE IV ONE (14:38)
[2020-09-07] MEDS ORDERED: Caclcium Chloride 10% INJ SYR IV ONE (14:38)
[2020-09-07] MEDS ORDERED: NA CHLORIDE 0.9% 1,000 ML IV ONE (14:38)
[2020-09-07] MEDS ORDERED: AMIODARONE HCL 150 MG/3 ML INJ IV ONE (14:38)
[2020-09-07] MEDS ORDERED: ATROPINE SULF 1 MG/10 ML SYR IV ONE (14:38)
--- NOTE | 2020-09-07 19:47 | P.DS ---
Admission Date: 09/06/20 Discharge Date: 09/07/20 Primary Care Provider: Dr. Jimenez Disposition: Reason for Admission: COVID-19 Pneumonia, NSTEMI Consultations: Cardiology - Dr. Lees Procedures: Problem List Acute hypoxemic respiratory failure secondary to COVID-19 pneumonia NSTEMI Hypertension Brief History of Present Illness: 74-year-old -[place]an female with history of hypertension, previous GI bleed presents emergency department for shortness of breath. Patient reports shortness of breath got significantly worse today. Patient 86% on nasal cannula upon arrival to the emergency department. Patient evaluated in the emergency department, labs significant for potassium 3.4 chloride 108 creatinine 1.42 GFR 44 glucose 145 troponin 0.83 C-reactive protein 17.6. Patient reported receiving Denty's covid vaccine 2nd dose ~2 weeks ago. Patient found to be COVID+ and pneumonia on CXR. Hospital Course: She was started on COVID treatment protocol and therapeutic lovenox. Her oxygen requirement increased and was requiring HFNC 100%. Her troponins trended upwards. In the morning of 09/07, she reported feeling tired but overall better than when she came in. She got up to bedside commode to urinate, when she suddenly became bradycardic and had cardiac arrest. Code Blue was called. Patient was coded for ~40-45 minutes, undergoing multiple rounds of epi, shocks, and CPR. Eventually had ROSC. She was intubated, central line placed, levophed initiated. Patient subsequently coded 2 more times. She was continuing to need increasing pressors, had SpO2 of 70-80% on ventilator with 100% FiO2, and was unresponsive despite not receiving any sedative medications. All of this was reviewed with multiple family members - sisters/brothers/daughters/sons/cousins. After discussion, it was ultimately decided that withdrawal of care would be most in line with the patient's wishes. Patient was extubated and pressors discontinued. She passed peacefully shortly thereafter, at 1251. Vital Signs/Physical Exam: Temp Pulse Resp BP Pulse Ox 96.2 F L 89 21 H 88/57 L 80 L 09/07/20 12:00 09/07/20 12:00 09/07/20 12:00 09/07/20 12:00 09/07/20 12:00 Laboratory Data at Discharge: WBC Cancelled 09/07/20 11:58 Hgb Cancelled 09/07/20 11:58 Hct Cancelled 09/07/20 11:58 Plt Count Cancelled 09/07/20 11:58 PT 14.7 SECONDS (9.5-12.5) H 09/06/20 20:15 INR 1.28 09/06/20 20:15 APTT 26.2 SECONDS (24.3-36.9) 09/06/20 20:15 Sodium Cancelled 09/07/20 Unknown Potassium Cancelled 09/07/20 Unknown BUN Cancelled 09/07/20 Unknown Creatinine Cancelled 09/07/20 Unknown Glucose Cancelled 09/07/20 Unknown Magnesium Cancelled 09/07/20 Unknown Total Bilirubin Cancelled 09/07/20 Unknown AST Cancelled 09/07/20 Unknown ALT Cancelled 09/07/20 Unknown Alkaline Phosphatase Cancelled 09/07/20 Unknown Troponin I Cancelled 09/07/20 16:56 Triglycerides 96 mg/dL (<150) 09/07/20 04:56 Cholesterol 155 mg/dL (<200) 09/07/20 04:56 HDL Cholesterol 40 mg/dL (40-60) 09/07/20 04:56 Cholesterol/HDL Ratio 3.88 09/07/20 04:56 Home Medications: Aspirin [Aspirin EC 81 MG] 81 mg PO DAILY 09/06/20 Benazepril HCl [Lotensin] 40 mg PO BID 09/06/20 Clonidine Patch [Catapres-Tts 3] 1 each TD EVERY 7TH DAY 09/06/20 Esomeprazole Magnesium [Nexium] 1 cap PO DAILY 09/06/20 Nebivolol HCl [Bystolic] 10 mg PO DAILY 09/06/20 Nifedipine [Procardia Xl] 60 mg PO DAILY 09/06/20 Followup: NONE,NONE [Primary Care Provider] - Time spent managing pt's care (in minutes): 120
[2020-09-07] MEDS ORDERED: ATORVASTATIN 40 MG TAB PO SCH (21:00)
--- NOTE | 2020-09-08 20:14 | CON ---
Date of Consultation: 09/07/2020 Reason For Admission: Initially was COVID pneumonia and elevated troponin, but when I saw her, the p atrolly has already had a cardiac arrest. History Of Present Illness: Ms. Upton is 74. Has a history of hypertension, gastroesophageal re flux disease. Came in with shortness of breath. Was found to have COVID pneumonia, troponin was mayo vated, she was being treated for that. However, she ended up going into ventricular fibrillation req uiring prolonged CPR and intubation. By the time I saw her, she was having agonal breathing, but her vital signs were stable, she was afebrile. She was on IV amiodarone. Her echocardiogram was pendin g. Apparently, the patient had denied any chest pain upon admission, but was mostly short of breath. EKG had shown some lateral ischemic changes. Past Medical History: As stated above. Allergies: NONE. Review of Systems: Negative. Social History: Negative. Family History: Negative. Medications: Include aspirin, Lotensin, clonidine, Nexium, Procardia, and Bystolic. Physical Examination: General: She was intubated, agonal breathing. Vital Signs: Stable now. She is in sinus rhythm, afebrile. HEENT: Negative. Neck: Supple with no bruit. Chest: Revealed some rales both bases. Cardiac: Revealed a regular rhythm and rate. No murmurs, gallops, or rubs. Abdomen: Obese, but benign. Extremities: Revealed no clubbing, cyanosis. She had trace edema. Diagnostic Data: Showed a troponin of 0.83 initially and then went up to 1.65. Her CRP was 21. [address] st x-ray showed COVID pneumonia. Some of the rhythm strip showed ventricular fibrillation during the code. Impression And Plan: Ms. Upton is too unstable. She is hypotensive, on Levophed, unresponsive, agonal breathing. I think she is a very poor candidate for coronary intervention or catheterization at this point. We will see how she does with her treatment of COVID. Echocardiogram will tell us mo re about how extensive her IL was. I will continue to discuss the case with Dr. Burnett. If she impro ves, we will certainly consider a heart catheterization in the very near future. CM/YU Voice ID: [id number] Report ID: [id number]
--- NOTE | 2020-09-12 12:43 | EKG ---
Test Date: 2020-09-07 Test Time: 08:30:36 Rewinder Operator: MEASUREMENT RESULTS: Intervals: Rate: 81 CT: 166 QRSD: 102 QT: 360 QTc: 418 [place]: P: 7 CT: 166 QRS: -31 T: 98 INTERPRETIVE STATEMENTS: Normal sinus rhythm Left axis deviation ST elevation, consider lateral injury or acute infarct ACUTE IN Abnormal ECG Compared to ECG 09/06/2020 20:22:00 Left-axis deviation now present ST (T wave) deviation now present Sinus tachycardia no longer present Atrial premature complex(es) no longer present Myocardial infarct finding still present Electronically Signed On 09-12-20 12:38:10 CDT by Fernando Lees
== END 2020-09-07 14:39 | disposition expired | DRG 208 ==
LOC: ER 19:48 → ERHOLD 21:43
PROVIDERS: ADMIT Hospitalist; ATTEND Hospitalist
PROC: 5A12012 Performance of Cardiac Output, Single, Manual (ICD-10-PCS; principal; 2020-09-07)
PROC: 5A1935Z Respiratory Ventilation, Less than 24 Consecutive Hours (ICD-10-PCS; 2020-09-07)
PROC: 0BH17EZ Insertion of Endotracheal Airway into Trachea, Via Natural or Artificial Opening (ICD-10-PCS; 2020-09-07)
PROC: 06HY33Z Insertion of Infusion Device into Lower Vein, Percutaneous Approach (ICD-10-PCS; 2020-09-07)
DX: U07.1 COVID-19 (principal); J12.82 Pneumonia due to coronavirus disease 2019; J96.01 Acute respiratory failure with hypoxia; I21.4 Non-ST elevation (NSTEMI) myocardial infarction; I10 Essential (primary) hypertension
CPT/HCPCS: 31500; 36415; 71045; 80048; 80053; 80061; 80076; 82728; 82805; 82947; 83735; 83880; 84145; 84439; 84443; 84484; 85025; 85610; 85730; 86140; 86850; 86900; 86901; 87040; 87077; 87186; 87205; 87804; 93005; 93306; 94002; 94010; 96365; 96366; 96372; 96375; 99285; C9113; J0171; J0282; J0456; J0696; J1650; J2920; J2930; J3010; J7030; J7050; J7060; U0003